=== PATIENT | male | born 1995 | race Caucasian/White ===

== ENCOUNTER 2019-02-28 09:34 | Emergency (ER) | payer OTHER ==
[~2019-02-28] VITALS: Ht 149.9 cm; Wt 52.0 kg
[2019-02-28] MEDS ORDERED: VALPROIC ACID 250MG CAPSULE PO ONE (10:45)
[2019-02-28 11:58] VITALS: BP 101/59
== END 2019-02-28 11:58 | disposition home or self-care (01) ==
LOC: ER 09:44
DX: R56.9 Unspecified convulsions (principal); F79 Unspecified intellectual disabilities
CPT/HCPCS: 99283